=== PATIENT | female | born 1960 | race Caucasian/White ===

== ENCOUNTER 2016-10-18 11:01 | Day surgery (SDC) | payer OTHER ==
[~2016-10-18] VITALS: Ht 177.8 cm; Wt 90.7 kg
[2016-10-18] VITALS (19 sets, daily range): BP systolic 119–160; BP diastolic 64–83; PULSE 61–74; RESP 12–18; O2SAT 96–100
[2016-10-18] MEDS: Lactated Ringer's 1,000 ML IV SCH ×4 (05:00→21:46)
[~2016-10-18 11:01] MED LIST: BIOT5000 PO; CeFAZolin 2 Gm/50 mL D5W IV Premix IV ONE; FESO4TAB PO; MULT-1018 PO; OMEG1CAP25 PO; PRE625 PO; Phenazopyridine 97.5 mg Tablet PO ONE; TRAM50TA2 PO; VIT1TABL83 PO; magnesium; vitamin d3; zolpidem
[2016-10-18] MEDS ORDERED: Succinylcholine Chloride 20 mg/mL 5 mL Inj ONE (11:02)
[2016-10-18] MEDS ORDERED: Dexamethasone 4 mg/mL Inj ONE (11:02)
[2016-10-18] MEDS ORDERED: Ketamine 10 mg/mL 20 mL Inj ONE (11:02)
[2016-10-18] MEDS ORDERED: MetoCLOpramide 5 mg/mL 2 mL Inj ONE (11:02)
[2016-10-18] MEDS ORDERED: Bupivacaine-MPF 0.75% 30 mL Inj ONE (11:02)
[2016-10-18] MEDS ORDERED: Propofol 10,000 mCg/mL 20 mL Inj ONE (11:02)
[2016-10-18] MEDS ORDERED: Morphine PF 1 mg/mL 10 mL Inj ONE ×2 (11:02→13:49)
[2016-10-18] MEDS ORDERED: Phenazopyridine 97.5 mg Tablet ONE (11:26)
[2016-10-18] MEDS ORDERED: CeFAZolin 2 Gm/50 mL D5W Duplex Bag IV ONE (11:26)
[2016-10-18] MEDS ORDERED: Famotidine 20 mg/50 mL NS Premix IV ONE (12:33)
[2016-10-18] MEDS ORDERED: Famotidine Inj 20 MG in IV Premix 1 EACH IV ONE (13:00)
--- NOTE | 2016-10-18 13:48 | PCM.HPANE ---
Patient Data Surgeon Admitting Provider: Attending Provider:Jeffery Quach MD Primary Care Physician:Nani Allen MD Other Provider:Holli Rodriguezingham Anesthesia Reason for Visit Cystocele, Stress Incontinence Ht/WT & BMI Height (Feet): 5 Height (Inches): 10.00 Weight (Kilograms): 90.710 Body Mass Index 28.00 Allergies Uncoded Allergies: NSAIDS (Adverse Reaction, Unknown, unable to take r/t Barretts esophagus, ) Past Anesthesia History Anesthesia History: Denies:: Abnormal Airway, Anesthesia Reactions, Difficult Intubation, Fam Anesthesia Reaction, Malignant Hyperthermia Diabetes History Hx Diabetes?: No MRSA MRSA: No Medications Hypertension Medication: No Home Meds Incl Beta Anuradha: No Reported Medications Vit B Comp/C/FA/Iron/Vit E (Vitamin B Complex Tablet)1 Each Tablet1 Each PO DAILY 10/16/16 [magnesium] No Conflict CheckUnknown Dose DAILY 10/13/16 Chester-3 Fatty Acids/Fish Oil (Chester 3 Fish Oil Softgel)1 Each Capsule.dr1 Each PO DAILY 10/13/16 Biotin 5,000 Mcg Tab.rapdis5,000 Mcg PO DAILY 10/13/16 [vitamin d3] No Conflict CheckUnknown Dose DAILY 10/13/16 Estrogens Conjugated (Premarin)0.625 Mg Tablet0.625 Mg PO WEEKLY 30 Days Ref 0 10/13/16 Multivitamin (Multi Vitamin Daily)1 Each Tablet1 Each PO DAILY 30 Days Ref 0 10/13/16 [zolpidem] No Conflict CheckUnknown Dose PRN Insomnia 10/13/16 Tramadol 50 Mg Mljanx24 Mg PO BID PRN For Pain Ref 0 10/13/16 Fesoterodine ER (Toviaz)4 Mg Tablet4 Mg PO DAILY 10/13/16 History History of ENT Problems?: No HEENT History: Denies:: Abnormal Airway Cataracts Difficult Intubation Dysphagia (hx of barretts- ) Glaucoma Hearing Problem Sinus Problem TMJ Denture Type: None Teeth Condition: Within Normal Limits Hx of Heart Problems?: No Cardiovascular History: Denies:: AICD Abdominal Aortic Aneurism Atrial Fibrillation Cardiac Surgery Chest Pain Congestive Heart Failure Coronary Artery Disease Edema Heart Murmur Hypertension Irregular Heartbeat Pacemaker Peripheral Vascular Rheumatic Fever Hx of Respiratory Problem?: No Respiratory History: Denies:: Asthma COPD Emphysema Oxygen Administration Pneumonia Tuberculosis Use of C-PAP Machine Hx Neurologic Problems?: No Neurological History: Denies:: CVA Headaches Multiple Sclerosis Parkinson's Disease Seizures TIA Hx of GI Problems?: Yes Hx of Problems?: Yes Genitourinary History: Denies:: Kidney Stones Urinary Tract Infection Female Hx: Denies:: Currently (hysterectomy) Problems with Breasts? Skin History: Positive for:: History Skin Disorders? (left lateral calf- stitches 10 days old - bandage in place- dr binh garcia) Denies:: Pressure Ulcers Hx Musculoskeletal Problems?: Yes Musculoskeletal History: Positive for:: Back Injury (hx of L4-5 lami) Degenerative Joint Joint Replacement (partial L knee, currently having some troubles with) Osteoarthritis Denies:: Fibromyalgia Myasthenia Gravis Systemic Lupus Hx of Psycho/Social Problems?: No Psycho Social History: Denies:: Anxiety (situational anxiety) Hx Depression Hx Surgeries?: Yes (partial left knee replacement, hyst, bladder sling, L4-5 lami) Hx Any Other Health Problems?: Yes Other History: Positive for:: Cancer (bcc facial ) Denies:: Thyroid Disease History Blood Transfusions: Positive for:: Accept Blood Products? Denies:: Blood Transfusions Hx Diabetes: No Hx Alcohol Use: NoHx Substance Use: No Smoking Status: Former Smoker Have You Smoked inLast 12 mo: No Stop/Bang Treated for Sleep Apnea?: No Do You Have a CPAP Machine?: No S-Snoring: Do You Snore Loudly: No T-Tired: feel tired, fatigued: No O-Obsered: Observed not breath: No P-Blood Pressure: treated: No B- Body Mass Index > 35 kg/m2: Yes A- Age over 50: Yes N- Neck Large Circumference: No G- Gender Male: No DEMETRICE Total Score: 2 DEMETRICE Risk Assessment: Low Risk, <3 Yes Risk Assessment Category Category 1A: Patient has history of documented sleep apnea, and HAS NOT received any narcotic, sedative or anesthesia administration during this stay. Category 1B: Patient has history of documented sleep apnea, and HAS received any narcotic , sedative or anesthesia administration during this stay Category 2: Patient has SUSPECTED Obstructive Sleep Apnea, and HAS received any narcotic , sedative or anesthesia administration during this stay. Category 3: Patient has SUSPECTED Obstructive Sleep Apnea and HAS NOT received narcotic, sedative or anesthesia administration during this stay. Category 4: Outpatient in Procedural Areas with known sleep apnea or who screen positive for High Risk via the STOP/BANG questionnaire. Exam Exam Vital Signs Vital Signs Date Time Temp Pulse Resp B/P Pulse Ox O2 Delivery O2 Flow Rate FiO2 10/18/16 12:05 36.4 65 16 119/67 99 Room Air General Appearance: Oriented X3 HEENT/AIRWAY: MP 2 Lungs: Normal Air Movement Heart: Regular Rate/Rhythm Meds/Labs/Diagnostics Admission Meds Current Medications Lactated Ringer's (Lr) 1,000 ml @ 120 mls/hr Q8H20M IV Last administered on 11:53; Start 10/18/16 at 05:00; Stop 10/18/16 at 13:19; Status DC Phenazopyridine HCl (Azo Standard) 2 tab ONCE ONCE PO Last administered on 10/18 12:17; Start 10/18/16 at 06:00; Stop 10/18/16 at 06:01; Status DC Famotidine/Sodium Chloride (Pepcid Inj) 20 mg STK-MED ONCE IV Last administered on 10/18/16 12:40; Start 10/18/16 at 12:33; Stop 10/18/16 at 12:35; Status DC Plan Impression Patient chart reviewed, patient interviewed and anesthestic plan with risks, benefits, and alternatives discussed, and informed consent obtained. ASA Physical Status: ASA2 Mod Systemic Disease Anesthetic Plan: GA, SAB Bene/Risks/Altern/Consents: Yes HP Complete Prior to Induction: Yes Dneg Austin MD Oct 18, 2016 13:48
[2016-10-18] MEDS ORDERED: Lactated Ringer's 500 ML IV PRN (14:41)
[2016-10-18] MEDS ORDERED: Lactated Ringer's 1,000 ML IV SCH (14:41)
[2016-10-18] MEDS ORDERED: Ondansetron 2 mg/mL 2 mL Inj IVPUSH PRN ×2 (14:45→18:15)
[2016-10-18] MEDS ORDERED: Dexamethasone 4 mg/mL Inj IVPUSH PRN (14:45)
[2016-10-18] MEDS ORDERED: EPHEDrine Sulfate 50 mg/mL Inj IVPUSH PRN (14:45)
[2016-10-18] MEDS ORDERED: MetoCLOpramide 5 mg/mL 2 mL Inj IVPUSH PRN ×2 (14:45→18:15)
[2016-10-18] MEDS ORDERED: Labetalol 5 mg/mL 4 mL Inj IV PRN (14:45)
[2016-10-18] MEDS ORDERED: Phenylephrine 10,000 mCg/mL Inj IVPUSH PRN (14:45)
[2016-10-18] MEDS ORDERED: HYDROmorphone 1 mg/mL Inj IVPUSH PRN (14:45)
[2016-10-18] MEDS ORDERED: Gentamicin 40 mg/mL 2 mL Inj IRRIGATION ONE (14:55)
[2016-10-18] MEDS ORDERED: Lidocaine 1%-Epi 1:100,000 20 mL Inj INFILTRATE ONE (14:55)
[2016-10-18] MEDS ORDERED: Lactated Ringer's 1,000 ML IV ONE ×2 (16:15→18:55)
[2016-10-18] MEDS ORDERED: Estrogens Conjugated 30 Gm Vaginal Cream VAGINAL ONE (16:57)
[2016-10-18] MEDS ORDERED: diphenhydrAMINE 25 mg Capsule PO PRN (18:15)
[2016-10-18] MEDS ORDERED: Alum-Mag Hydrox-Simeth 30 mL Suspension PO PRN (18:15)
[2016-10-18] MEDS ORDERED: fentaNYL-PF 50 mCg/mL 2 mL Inj ONE (18:24)
[2016-10-18] MEDS: fentaNYL-PF 50 mCg/mL 2 mL Inj IVPUSH PRN ×2 (18:28→19:00)
[2016-10-18] MEDS: Acetaminophen IV 1,000 MG in IV Premix 1 EACH IV PRN (18:55)
[2016-10-18] MEDS: Senna-Docusate 8.6-50 mg Tablet PO SCH (21:45)
--- NOTE | 2016-10-18 23:26 | PCM.SURGOP ---
Surgical Operative Report Date of Service: Oct 18, 2016 Pre Operative Diagnosis Her assessment to date includes: Recurrent Cystocele, midline N81.11 (618.01): Vaginal vault prolapse after hysterectomy N99.3 (618.5): Recurrent Stress incontinence in female N39.3 (625.6): urodynamic stress incontinence Post Operative Diagnosis POPQ Stage 2 Cystocele/Vaginal vault prolapse/Rectocele Deficient pubocervical/pubovesical fascia Stress incontinence Procedure: 1. anterior repair with Xenform biologic graft augmentation. 2. posterior repair 3. high uterosacral ligament vaginal vault suspension 4. Macroplastique urethral injection, cystoscopy Surgeon and Blending Tank Tender: Surgeon: Jeffery Quach MD Assistants: Everardo Wang MD Indication for Procedure Her assessment to date includes: 1. Previous urogyn surgery by Dr. Ash Pete including: a) 01/28/2010 cystocele and rectocele repair and MiniArc Precise sling b) 08/24/2003 Skillman sling c) 08/22/1995 TAHRSO (dx: pelvic adhesions, pelvic congestion, uterine enlargement) 2. Recurrent Cystocele, midline N81.11 (618.01): 3. Vaginal vault prolapse after hysterectomy N99.3 (618.5): 4. Vaginal atrophy N95.2 (627.3): 5. Recurrent Stress incontinence in female N39.3 (625.6): urodynamic stress incontinence The patient is a candidate for surgical management in the form of anterior repair with Xenform biologic graft augmentation. high uterosacral ligament vaginal vault suspension and enterocele repair. and Macroplastique urethral injection. The patient signed the consent form. She agreed with the risks, benefits, and alternatives to surgery. The risks included but not limited to recurrence or persistence of prolapse, recurrence of persistence of incontinence, development of voiding dysfunction, development of urinary urgency, urgency incontinence, frequency, and need for intermittent self-catheterization or prolonged indwelling catheterization, injury to other organs including bladder, bowel, nerves or blood vessels. Need for blood transfusion, need for temporary colostomy or urinary stenting. Development of vaginal scarring, dyspareunia, defecatory dysfunction, recurring pain, hematoma formation, urinary tract infection, cellulitis, necrotizing fascitis, and medical risks including myocardial infarction, stroke or VTE. She also understood the FDA warnings associated with the use of vaginal graft (dysparunia, vaginal erosion, erosion into bowel/bladder/urethra, requiring further surgery to correct these complications). Need for future repeat urethral injection. Findings: see dictation Procedure Details SURGICAL TECHNIQUE: The patient was brought to the operating room and was given a spinal Duramorph, then placed under general anesthesia. She was prepped and draped in the normal fashion for vaginal surgery with the legs in Yellofin stirrups. Also, her hips were allowed to deflex periodically during the case to avoid any pressure on the nerves and lower limb joints. She was given a dose of IV 2g Ancef intraoperatively (and a second dose at the end of the case). She was given 200 mg oral pyridium prior to surgery. EUA revealed a POPQ stage 2 anterior, apical and posterior vaginal prolapse to the hymen. 1. Anterior colporrhaphy with Xenform graft augmentation: Lidocaine 0.5% with 1 /[id number] epinephrine was infiltrated along the anterior vaginal wall mucosa. A midline vertical incision was made through the anterior vaginal wall. The vaginal wall was dissected off the underlying pubocervical and pubovesical fascia. The dissection was extended laterally beyond the ischiopubic rami. Bilateral paravaginal defects were noted. It was noted that the pubocervical and pubovesical fascial tissues were deficient. During the dissection along the apex, an enterocele sac was entered with sharp dissection. This was aided with the use of a gloved finger in the rectum to avoid penetrating the rectal mucosa. The rest of the anterior repair would be completed later in the procedure. 2. High uterosacral ligament vaginal vault suspension and cystoscopy: Several mini laparotomy sponges were packed to retract the bowel upwards. A pair of Allis clamps were placed along the intraperitoneal portions of the vagina at the 5 and 7 o'clock positions. Tension along these Allis clamps allowed for identification of the uterosacral ligaments bilaterally. The ureters were palpated to avoid penetrating them. A pair of 0 Vicryl sutures were passed around the left uterosacral ligament at the level of the ischial spines. After insertion of these sutures, brisk venous bleeding was noted along the perirectal and retroperitoneal space. Despite attempts to control the bleeding with suture, the bleeding continued. Therefore, the L pelvis was packed with multiple sponges, and after 10 minutes of pressure, the bleeding slowed to a minimum. Cystoscopy was performed while tension was placed on the 2 left vault sutures. Cystoscopy revealed the presence of spillage of pyridium- stained urine at the left ureteric orifice (and right) despite applying tension along the uterosacral ligament sutures. A pair of 0 Vicryl sutures were passed around the right uterosacral ligament at the level of the ischial spines. Cystoscopy was performed while tension was placed on all 4 vault sutures. Cystoscopy revealed the presence of spillage of pyridium-stained urine at both ureteric orifices. To ensure hemostasis along the left pelvic area, Fibrin solution was injected onto the previously bleeding areas and gelfoam was also placed on top of the area. The remainder of the anterior repair was then completed as follows: The cystocele was plicated in 2 layers, the first layer with 2-0 Vicryl suture in interrupted fashion, the second layer with 2-0 Tycron suture in an interrupted fashion. Bleeding along the right paravaginal space was controlled using 2-0 vicryl suture. A trapezoidal piece of Xenform graft was then incorporated atop the plicated area far laterally. The graft was secured far laterally into the obturator internus membrane. At the level of the bladder neck, an upside down triangular piece of graft was excised so that there was no excessive-support along the level of the bladder neck. Apically, the graft was passed through the proximal uterosacral ligament sutures. Minimal anterior vaginal mucosa was required to be excised. The vault suspension sutures were then passed through the planned apex of the vagina. The vagina was then reapproximated using 3-0 Vicryl suture in a running locked fashion. The vault sutures were tied and this elevated the apex of the vagina high up into the hollow of the sacrum. 3. Posterior colpoperineorrhaphy: Examination under anesthesia revealed that the posterior segment descended 1cm proximal to the hymen (POPQ Stage 2). Lidocaine 0.5% with 1:200,000 of epinephrine was infiltrated along the perineum and posterior vaginal wall mucosa. A thin karson-shaped incision was made through the perineum and a vertical midline incision was made in the posterior vagina with a scalpel. The vaginal mucosa was dissected off the underlying rectovaginal tissues. It was noted the rectovaginal fascial tissues were not thin and deficient. The rectocele was plicated in a one layer using 2-0 Vicryl suture in an interrupted fashion. A mild amount of excess posterior vaginal mucosa needed to be excised. The vagina was then reapproximated using 3-0 Vicryl suture in a running locked fashion. Perineum was reapproximated using 2-0 Vicryl suture in an interrupted fashion. The skin was reapproximated using 3-0 Vicryl suture in a subcuticular fashion. 4. Cystoscopy and Macroplastique urethral injection: We then proceeded with cystoscopy. Cystoscopy revealed a normal appearing urethra and bladder. Both ureteric orifices were visualized and noted to be functional by the brisk spillage of pyridium-stained urine. This was observed numerous times. The bladder and urethra appeared normal. A 30-degree cystoscope was inserted into the bladder. The bladder was filled to approximately 50% capacity with sterile water. The scope was retracted to visualize the bladder neck and location of the mid urethral position. The needle was then advanced through the working channel of the scope to visualize the needle tip. The needle was inserted into urethral wall, taking care to ensure that the needle bevel was facing the center of the urethral lumen. We used the tissue tunneling technique by orienting the needle with the bevel towards the urethral lumen at a 30- to 45-degree angle. The needle was advanced into the tissue to the first fara, which was 0.5 cm deep. The scope was reduced to 0 degrees. The needle was then advanced to a second fara, which was 1 cm deep. Then, 2.5 mL of the Macroplastique were then injected at the 6 o'clock position. Thirty seconds of waiting time elapsed before withdrawing the needle from the tissue to limit product extravasation. The same procedure was performed at the 2 and 10 o'clock positions. The volumes at the 2 and 10 o'clock positions were 1.25 mL of Macroplastique implant. An additional 1.25 ml of the implant was injected each at the 4 oclock and 8 ooclock positions. The end result of the procedure revealed coaptation of the urethral mucosa at the level of the bladder neck. An 12 F borges catheter was inserted to straight drainage The estimated blood loss was approximately 700 mL. The Hb at the end of the case was 12. There were no complications. All sponges and instruments were accounted for. The patient was taken to the recovery room in stable condition. Complications EBL 700 ml. Bleeding controlled with direct pressure. Surgical Specimen Removed: No Specimen sent to Pathology: No Anesthetic Plan: GA, SAB Grafts, Implants: Implants-See Implant Record Output, Estimated Blood Loss: 700 (ml EBL) Blood Administration during reeves: No Drains: None Catheters: Urethral 2 Way Borges Post Operative Plan overnight stay in bed as outpatient for serial Hct, and voiding trial in the am copies to: Everardo Wang MD; Jeffery Quach MD; Nani Allen MD, William Andre Z MD Oct 18, 2016 23:26
[2016-10-19 00:25] VITALS: BP 92/51; PULSE 78; RESP 18; O2SAT 97
--- NOTE | 2016-10-19 01:57 | NUR ---
Post/Op Pt arrived to unit around 2030ish from PACU via stretcher. Alert, oriented, and able to make needs known. Able to slide self from stretcher to bed with stand by assist with no safety concerns. Denies nausea, vomiting, or diarrhea. Pleasant and denies pain or discomfort upon arrival. Wynn catheter in place, patent and draining orange urine due to pyridium administered in OR. Able to move all extremities with no limitation. Denies numbness or tingling. No drainage on lisandro patch so far. Heating pad applied per pt's request for her chronic back pain with no issue and pt verbalized some relief. Care continues
[2016-10-19] MEDS: Lactated Ringer's 1,000 ML IV SCH ×3 (02:12→18:12)
[2016-10-19 05:23] VITALS: BP 93/54; PULSE 62; RESP 18; O2SAT 98
[2016-10-19 06:03] LABS: BASOPHILS % (AUTO) 0.2 % (0-3); EOSINOPHILS % (AUTO) 0 % (0-5); MONOCYTES % (AUTO) 8.5 % (4-12); Mean Corpuscular Volume 91.1 fL (81-100); NEUTROPHILS % (AUTO) 74.9 % (40-74); Platelet Count 217 bil/L (150-400)
--- NOTE | 2016-10-19 07:30 | PCM.ANEP1 ---
Post Anesthesia PACU Phase 1 Assessment Vital Signs Vital Signs Date Time Temp Pulse Resp B/P Pulse Ox O2 Delivery O2 Flow Rate FiO2 10/19/16 05:23 36.7 62 18 93/54 98 Room Air 10/19/16 00:25 36.9 78 18 92/51 97 Room Air Anesthetic Administered: GA Level of Alertness: Awake, talking STILL's with Equal Strength: Yes Pain: No Nausea or Vomiting: No CV Function & Hydration Stable: Yes Airway Device: Lungs: Normal Air Movement Dermatome Level: T12 (Symphysis Pubis) PACU Phase 2 Assessment Patient Instructions Provided: N/A Deng Austin MD Oct 19, 2016 07:30
[2016-10-19] MEDS ORDERED: Omega-3 Fatty Acids 1,000 mg Capsule PO SCH (08:30)
[2016-10-19 08:52] VITALS: BP 101/61; PULSE 74; RESP 16; O2SAT 100
[2016-10-19] MEDS: Senna-Docusate 8.6-50 mg Tablet PO SCH (08:52)
--- NOTE | 2016-10-19 11:39 | PCM.DIGYN ---
Surgical Discharge Instruction Dates of Hospitalization Date of Hospital Admission 10/18/16 outpatient Providers Admitting Physician: Primary Care Physician: Nani Allen MD Attending Physician: Jeffery Quach MD Diagnosis at Time of Discharge Diagnosis at time of discharge POPQ Stage 2 Cystocele/Vaginal vault prolapse/Rectocele Deficient pubocervical/pubovesical fascia Stress incontinence Post-operative diagnosis POPQ Stage 2 Cystocele/Vaginal vault prolapse/Rectocele Deficient pubocervical/pubovesical fascia Stress incontinence Problems: Diet Discharge Diet: No restrictions Activity Discharge Activity-General: Restrict lifting to no greater than (10 lbs for 6 wk; no intercourse for 6 wk) Dressing and Incisional Care Hygiene: May shower Follow Up Plan Follow-up appointment: Weeks (two with Dr. Quach; if home with 12F borges catheter, see Dr. Quach's MA in 1 wk - also don't forget to bring the unopened 12F catheter to the clinic) Call your provider for: Fever, Chills, Shortness of breath, Vomitting, Drainage at incision, Heavy vaginal bleeding, Increasing pain Jeffery Quach MD Oct 19, 2016 11:39
--- NOTE | 2016-10-19 12:46 | PCM.PNSURG ---
Subjective Date of Service: Oct 19, 2016 Date of Service: Oct 19, 2016 Visit Information: Reason for Visit Cystocele, Stress Incontinence Surgery/Surgery Date Post-Op Day # 1 Subjective: AVSS doing well ambulating Hct stable 31.7 eating, tolerating diet pain controlled well Postop General: No Complaints Objective Vital Sign- Last 8 Hours Date Time Temp Pulse Resp B/P Pulse Ox O2 Delivery O2 Flow Rate FiO2 10/19/16 08:52 36.7 74 16 101/61 100 Room Air 10/19/16 05:23 36.7 62 18 93/54 98 Room Air Intake and Output- Last 8 Hour 10/19/16 Cumulative From/Thru 07:00 09/20/16 10:25 - 10/19/16 06:28 Intake Total 2563 ml 4413 ml Output Total 2725 ml 3825 ml Balance -162 ml 588 ml Intake Oral 1520 ml 1520 ml IV Total 1043 ml 2893 ml Output Urine Total 2025 ml 2425 ml Estimated Blood Loss 700 ml 1400 ml # Bowel Movements 0 0 General: Alert, Oriented X3, Cooperative Lungs: Clear to Auscultation Abdomen: Benign Result Diagram: 10/19/16 0540 Assessment & Plan Impression stable for discharge Problems: Plan eat iron rich foods f/u in 2 wk; also in 1 wk if home with 12F borges (bring an unopened 12F to office) d/c later today copies to: Jeffery Quach MD, William Andre Z MD Oct 19, 2016 12:46
[2016-10-19 12:52] VITALS: BP 100/63; PULSE 71; RESP 18; O2SAT 96
[2016-10-19] MEDS: Acetaminophen IV 1,000 MG in IV Premix 1 EACH IV PRN (14:43)
--- NOTE | 2016-10-19 18:43 | NUR ---
DISCHARGE Patient is alert and oriented. She has tolerated ambulating in the hallway w/ standby assist and around the room without assistance. Tolerates diet. Pain is controlled with Tramadol and Tylenol. Patient denies chest pain, SOB, or nausea. Wynn d/c @ 10:20, but unable able to void over the next 30 min. Bladder 370ml noted. Wynn was reinserted. Patient was instructed on how to care for and empty catheter at home, and was able to verbalize and demonstrate understanding. IV removed from left AC and right hand. Doctor's orders, discharge instructions, medications, and prescriptions reviewed with patient. Follow-up appointments scheduled with doctors office one and two weeks out. Patient discharged with .
== END 2016-10-19 18:27 | disposition home or self-care (01) ==
LOC: SAS 11:01 → OSC 19:59 → SAS 10-19 18:27
PROVIDERS: ATTEND Obstetrics & Gynecology
DX: N99.3 Prolapse of vaginal vault after hysterectomy (principal); N81.11 Cystocele, midline; N81.6 Rectocele; N39.46 Mixed incontinence; R10.2 Pelvic and perineal pain; G89.18 Other acute postprocedural pain; E78.00 Pure hypercholesterolemia, unspecified; M19.90 Unspecified osteoarthritis, unspecified site; K22.70 Barrett's esophagus without dysplasia; F41.9 Anxiety disorder, unspecified; Z79.890 Hormone replacement therapy; Z90.710 Acquired absence of both cervix and uterus; Z86.010 Personal history of colon polyps; Z87.891 Personal history of nicotine dependence; Z85.828 Personal history of other malignant neoplasm of skin; Z96.652 Presence of left artificial knee joint
CPT/HCPCS: 36415; 51715; 57260; 57267; 57283; 85014; 85018; 85025; 86850; 86922; 96374; C1763; J0131; J0330; J0690; J1100; J1200; J1580; J2250; J2270; J2274; J2704; J2765; J3010; J3490; J7120; L8606